=== PATIENT | male | born 1950 | race Caucasian/White ===

== ENCOUNTER 2020-10-28 19:51 | Emergency (ER) | payer BC ==
[~2020-10-28] VITALS: Ht 170.2 cm; Wt 72.6 kg
--- NOTE | 2020-10-28 20:15 | NUR ---
PT AMBULATED TO ER REQUESTING FOR COVID TEST, PT STATES HE TOOK HOME COVID TEST AND WANTS TO RECHECK. A/O X4, NO SOB OR LABORED BRATHING, AFEBRILE. NO COVID SYMPTOMS NOTED.
--- NOTE | 2020-10-28 20:20 | NUR ---
DR. HAGER AT BEDSIDE, MSE IN PROGRESS.
--- NOTE | 2020-10-28 21:32 | NUR ---
Patient discharged to home in stable condition. No changes in LOC. Written and verbal after care instructions given. Patient verbalizes understanding of instructions. Stressed follow up or return to ER for worsening s/s. Steady gait. VSS.
[2020-10-28 21:38] VITALS: BP 134/72
== END 2020-10-28 21:35 | disposition home or self-care (01) ==
LOC: ER 19:51
DX: Z20.822 Contact with and (suspected) exposure to COVID-19 (principal); E78.5 Hyperlipidemia, unspecified; E11.9 Type 2 diabetes mellitus without complications; R03.0 Elevated blood-pressure reading, without diagnosis of hypertension
CPT/HCPCS: A4663